=== PATIENT | female | born 1950 | race Caucasian/White ===

== ENCOUNTER 2018-04-05 18:52 | Emergency (ER) | payer MEDICARE, BC ==
[2018-04-05 19:20] VITALS: BP 135/73
--- NOTE | 2018-04-05 19:41 | RAD ---
INDICATION: Traumatic right wrist fracture COMPARISON: Right wrist same date TECHNIQUE: AP, lateral, and oblique views were obtained. FINDINGS: There is a distal radial fracture described in a separate report. No other acute fractures are seen. There is an old avulsion injury from the ulnar styloid. There is mild soft tissue swelling about the wrist. IMPRESSION: INTRA-ARTICULAR DISTAL RADIAL FRACTURE.
--- NOTE | 2018-04-05 19:43 | RAD ---
INDICATION: Right wrist injury COMPARISON: None TECHNIQUE: AP, lateral, and oblique views were obtained. FINDINGS: There is a mildly impacted intra-articular fracture of the distal radius. No other acute fractures are evident. There is an old ulnar styloid fracture. There is advanced osteoarthritic change about the first carpometacarpal articulation. IMPRESSION: MILDLY IMPACTED INTRA-ARTICULAR FRACTURE DISTAL RADIUS.
--- NOTE | 2018-04-05 20:29 | UC ---
Upper Extremity HPI - HPI Summary HPI Summary: 68 y/o female presents to the urgent care c/o RT wrist and forearm pain w/ swelling s/p falling on a slippery cement about 1630Pm. Pt took 3tabs Of Advil around 1700pm. Pain at rest is 2/10 and w/ movement is 8/10. Pt states denies numbness and tingling sensation over her Rt arm or hand. She can move all her finger w/o any difficulty. Pt denies fever, SOB, chest pain, abdominal pain, N/v /D. Pt states Hx opf Spinal narrowing and has an appt w/ orthopedic Dr at [facility] next for a cortisone injection. - History of Current Complaint Chief Complaint: UCUpperExtremity Stated Complaint: FELL RIGHT WRIST INJURY Time Seen by Provider: 04/05/18 19:33 Hx Obtained From: Patient ?: No Onset/Duration: Sudden Onset, Lasting Hours - 3 hrs ago, Still Present Severity Initially: Moderate Severity Currently: Moderate Pain Intensity: 8 - movement Pain Scale Used: 0-10 Numeric Location Of Pain: Is Discrete @ - RT wrist and Rt forearm w/ swelling Character: Sharp, Dull Aggravating Factor(s): Movement, Lifting, Flexion, Extension, Internal/External Rotation Alleviating Factor(s): Ice, OTC Meds Associated Signs And Symptoms: Positive: Swelling, Bruising. Negative: Numbness /Tingling - Risk Factors Non-Orthopedic Risk Factor: Negative DVT Risk Factors: Negative Septic Arthritis Risk Factor: Negative - Allergies/Home Medications Allergies/Adverse Reactions: Allergies Allergy/AdvReac Type Severity Reaction Status Date / Time amoxicillin Allergy Rash Verified 04/05/18 19:22 Sulfa (Sulfonamide Allergy Rash Verified 04/05/18 19:22 Antibiotics) venlafaxine Allergy Itching Verified 04/05/18 19:22 egg AdvReac Severe TRIGGERS Verified 04/05/18 19:22 MIGRAINES PMH/Surg Hx/FS Hx/Imm Hx Previously Healthy: Yes Endocrine History: Hypothyroidism Other Endocrine History: Osteoarthritis Other Neurological History: DDD, spinal stenosis - Surgical History Surgical History: Yes Surgery Procedure, Year, and Place: PARTIAL THYROIDECTOMY (Lt THYROID LOBE- BENIGN TUMOR ). D & C - Family History Known Family History: Positive: Hypertension - Social History Occupation: Retired Lives: With Family Alcohol Use: Weekly Substance Use Type: None Smoking Status (MU): Former Smoker Review of Systems Constitutional: Negative Skin: Bruising - mild RT wrist brusing s/p fall Eyes: Negative ENT: Negative Respiratory: Negative Cardiovascular: Negative Gastrointestinal: Negative Genitourinary: Negative Motor: Negative Neurovascular: Negative Musculoskeletal: Decreased ROM - RT wrist, Other: - RT wrist pain and swelling s /p fall Neurological: Negative Psychological: Negative Is Patient Immunocompromised?: No All Other Systems Reviewed And Are Negative: Yes Physical Exam - Summary Physical Exam Summary: Vital Signs Reviewed: Yes General: Well-Appearing, No Pain Distress, Well-Nourished female w/o any apparent distress Eyes: Positive: Conjunctiva Clear - PERRLA, EOMI ENT: Positive: Normal ENT inspection, Hearing grossly normal, Pharynx normal, TMs normal, Uvula midline Neck: Positive: Supple, Nontender, No Lymphadenopathy Respiratory: Positive: Chest non-tender, Lungs clear, Normal breath sounds, No respiratory distress Cardiovascular: Positive: RRR, No Murmur, Pulses Normal, Brisk Capillary Refill Abdomen Description: Positive: Nontender, No Organomegaly, Soft. Negative: CVA Tenderness (R), CVA Tenderness (L) Bowel Sounds: Positive: Present Musculoskeletal: Positive: Strength Intact, Other: Neurological Exam: Normal Musculoskeletal: Positive: Wrist: the R wrist is without obvious asymmetry or deformity when compared to the L wrist. moderate swelling and bruising of medial aspect RT wrist. No overlying erythema or warmth. No bony crepitus. Point tenderness over the RT wrist and distal forearm. Point tenderness over the thenar eminence and ventral side of wrist. No scaphoid fullness or tenderness to direct palpation or axial load. Decreased ROM due to pain. Motor/ sensory function of ulnar, radial, median nerves intact. Ulnar and radial pulses intact. FROM of all fingers. Psychological Exam: Normal Skin Exam: Normal Triage Information Reviewed: Yes Vital Signs: Initial Vital Signs Temp 98.3 F 04/05/18 19:13 Pulse 75 04/05/18 19:13 Resp 16 04/05/18 19:13 BP 135/73 04/05/18 19:13 Pulse Ox 99 04/05/18 19:13 Upper Extremity Course/Dx - Course Course Of Treatment: 68 y/o female presents to the urgent care c/o RT wrist and forearm pain w/ swelling s/p falling on a slippery cement about 1630Pm. Pt took 3tabs Of Advil around 1700pm. Pain at rest is 2/10 and w/ movement is 8/10. Pt states denies numbness and tingling sensation over her Rt arm or hand. She can move all her finger w/o any difficulty. Pt denies fever, SOB, chest pain, abdominal pain, N/v/D. Pt states Hx opf Spinal narrowing and has an appt w/ orthopedic Dr at [facility] next for a cortisone injection.Hx obtained.RT wrist X-ray ordered. Impression: mildly impacted intrarticular fracture of the distal radius.Pt's symptoms discussed w/ Dr Galeana and he recommended a sugar thong splint. Pt's RT wrist immobilized sugar thong. Pt tolerated well procedure and There was no neurovascular compromise after splint application; the splint was in good alignment and the pt had good sensation and capillary refill at the time of discharge.Pt Advised RICE: Rest, Ice, elevation ,Rx Naproxen PO for pain. Pt advised to f/u w/ Orthopedic Dr Car in 2 days for further evaluation and treatment. Pt understood and agreed w/ plan of care. Pt left the clinic ambulating, hemodynamically stable. - Differential Dx/Diagnosis Differential Diagnosis/HQI/PQRI: Contusion, Fracture (Closed), Strain, Sprain Provider Diagnoses: 1-Mildly impacted infrarticular fracture of the RT distal radius Discharge - Sign-Out/Discharge Documenting (check all that apply): Discharge/Admit/Transfer - D/C home - Discharge Plan Condition: Stable Disposition: HOME Prescriptions: Naproxen TAB* [Naprosyn 250 mg TAB*] 250 mg PO Q8H PRN #30 tab PRN Reason: Pain Patient Education Materials: Wrist Fracture in Adults (ED) Referrals: Adrianne Robbins MD [Primary Care Provider] - 2 Days Deisy Car MD [Medical Doctor] - 2 Days Additional Instructions: 1-Please take medications as directed to alleviate pain and swelling. 2-Please apply ice, keep your forearm immobilized with the splint. 3- Please f/u with Orthopedic Dr Car in 2 days for further evaluation and treatment. - Billing Disposition and Condition Condition: STABLE Disposition: HOME
== END 2018-04-05 20:35 | disposition home or self-care (01) ==
LOC: UCEAST 18:52
DX: S52.571A Other intraarticular fracture of lower end of right radius, initial encounter for closed fracture (principal); W01.0XXA Fall on same level from slipping, tripping and stumbling without subsequent striking against object, initial encounter; Y93.9 Activity, unspecified; Y92.9 Unspecified place or not applicable; E03.9 Hypothyroidism, unspecified; M19.91 Primary osteoarthritis, unspecified site; Z88.0 Allergy status to penicillin; Z88.2 Allergy status to sulfonamides; Z88.8 Allergy status to other drugs, medicaments and biological substances; Z87.891 Personal history of nicotine dependence
CPT/HCPCS: 99213; G0463

== ENCOUNTER 2018-11-24 08:34 | Day surgery (SDC) | payer MEDICARE, BC ==
--- NOTE | 2018-11-19 13:26 | HP ---
AMENDED REPORT NOW INCLUDES DESIGNATED COSIGNER PREOPERATIVE HISTORY AND PHYSICAL: DATE OF ADMISSION/SURGERY: 11/27/18 DATE OF OFFICE VISIT/ENCOUNTER: 11/18/18 ATTENDING SURGEON: Mary Kate Holman MD * (DICTATED BY NEIDA CURTIS) PROCEDURE: Right thumb carpometacarpal joint arthroplasty, right wrist carpal tunnel release. CHIEF COMPLAINT: Base of right thumb pain and right hand numbness and tingling. HISTORY OF PRESENT ILLNESS: This is a 68-year-old female. She has had pain at the base of her thumb that has gradually progressed and became worse after she suffered a nondisplaced fracture to distal radius back in March 2018. X-ray showed that she has significant degenerative changes at the right thumb carpometacarpal joint. She is also complaining of numbness and tingling in her right hand in the median nerve distribution that has been present for quite some time and has become quite persistent. She is interested in undergoing surgical intervention for both of these problems and has consented to proceed with a right thumb CMC joint arthroplasty and right wrist carpal tunnel release. PAST MEDICAL HISTORY: 1. Hypothyroidism. 2. History of skin cancer - carcinoma. 3. History of cardiac murmur. PAST SURGICAL HISTORY: 1. Left total hip arthroplasty in 2017. 2. Left lobe thyroidectomy in 1994. 3. Skin cancer excisions. CURRENT MEDICATIONS: 1. Advil p.r.n. 2. Aleve p.r.n. 3. AR-Encap. 4. Astragalus root. 5. Baxyl. 6. Biotin. 7. Bone Builder with Magnesium. 8. CoQ10 Maximum. 9. EPA-DHA 500 EC. 10. Renetta's Leg Cramps. 11. Levothyroxine sodium 88 mcg daily. 12. Liothyronine sodium 5 mcg daily. 13. Magnesium CitraMate. 14. Olopatadine HCL 0.2% 1 drop both eyes daily. 15. PhytoGen. 16. PhytoMulti. 17. Restasis MultiDose 0.5%. 18. Synaptin. 19. Vitamin C. ALLERGIES: AMOXICILLIN and SULFA ANTIBIOTICS, both cause hives. FAMILY MEDICAL HISTORY: Cancer, heart disease, hypertension. SOCIAL HISTORY: The patient is a retired teacher. She is a former smoker, she quit in 2009. Prior to that, she smoked less than a pack per day, on and off for several years. She denies recreational drug use. She drinks alcohol on occasion. REVIEW OF SYSTEMS: Negative for general, cephalic, cardiovascular, respiratory , GI, and . Musculoskeletal: Positive for current complaints along with chronic low back pain. Integumentary, endocrine, neurologic, and hematologic are all negative. Infectious Disease: Negative for history of MRSA, hepatitis C, HIV. PHYSICAL EXAMINATION GENERAL: Well-developed, well-nourished 68-year-old female, in no acute distress. VITAL SIGNS: Height 5 feet 4 inches, weight 199 pounds. Pulse rate 80, blood pressure 132/80. HEENT: Normocephalic, atraumatic. Pupils are equal, round, and reactive to light and accommodation. Extraocular movements are intact. Throat is clear. NECK: Supple. No palpable lymph nodes. PULMONARY: Lungs are clear to auscultation bilaterally. No wheezes, rales, or rhonchi. CARDIOVASCULAR: Regular rate and rhythm. S1, S2. Mild murmur detected on auscultation. No rubs or gallops. No edema. ABDOMEN: Positive bowel sounds. Soft, nontender. NEUROLOGICAL: Alert and oriented x3. Cranial nerves II through XII are intact. Sensation is intact to light touch. MUSCULOSKELETAL: On exam of her right hand, she has significant degenerative changes evident at the thumb CMC joint. She has MP hyperextension and loss of range of motion in opposition. She also has positive median nerve compression test. There is no thenar wasting, but there is weakness with thumb abduction. IMAGING STUDIES: X-rays of the right thumb show severe degenerative changes at the CMC joint. IMPRESSION: Right thumb carpometacarpal arthritis and right carpal tunnel syndrome. PLAN: The patient is scheduled to undergo a right thumb carpometacarpal arthroplasty and a right wrist carpal tunnel release with Dr. Holman on . She will return to the office 10 days postop for followup and suture removal. A prescription for Dellroy was e-scribed to the patient's pharmacy for postoperative pain management. NEIDA CURTIS [id number]/[facility] #: [id number] KD
[~2018-11-24 08:34] MED LIST: Buffered Lidocaine 1% SYRIN* 1 ML/SYRINGE INTRADERM ONE; Lactated Ringers 1000 ML Bag* 1,000 ML IV SCH
[2018-11-24] MEDS ORDERED: Midazolam* 1 MG/ML 2 ML VIAL (2 MG) ONE (10:12)
[2018-11-24] MEDS ORDERED: fentaNYL* 50 MCG/ML 2 ML VIAL (100 MCG VIAL) ONE (10:12)
[2018-11-24] MEDS ORDERED: Clindamycin 900 MG/D5W BAG(*) 900 MG/50 ML BAG IVPB ONE (10:15)
[2018-11-24] MEDS ORDERED: Lidocaine 1% INJ* 10 MG/ML 30 ML SDV ONE (10:30)
[2018-11-24] MEDS ORDERED: Ondansetron INJ* 2 MG/ML VIAL ONE (10:48)
[2018-11-24] MEDS ORDERED: Dexamethasone IV* 4 MG/ML 1 ML (4 MG) ONE (10:48)
[2018-11-24] MEDS ORDERED: Propofol* 10 MG/ML 20 ML BTL ONE (10:48)
[2018-11-24] MEDS ORDERED: Lidocaine 2% PF * 5 ML VIAL ONE (10:48)
[2018-11-24] MEDS ORDERED: Acetaminophen TAB* 325 MG PO PRN (11:04)
[2018-11-24] MEDS ORDERED: HYDROmorphone INJ1* 1 MG/ML SYRINGE IV PRN (11:04)
[2018-11-24] MEDS ORDERED: oxyCODONE/Acetamin 5/325 MG* TAB PO PRN (11:04)
[2018-11-24] MEDS ORDERED: Naloxone* 0.4 MG/ML 1 ML VIAL IV PRN (11:04)
[2018-11-24] MEDS ORDERED: Ketorolac INJ* 30 MG/ML 1 ML VIAL IV PRN (11:04)
[2018-11-24] MEDS ORDERED: Bupivacaine 0.5% PF 10 ML VIAL INJ ONE ×2 (11:08→11:09)
[2018-11-24 12:53] VITALS: BP 136/52
--- NOTE | 2018-11-24 21:12 | OP ---
DATE OF OPERATION: 11/24/18 [facility] DATE OF : 50 SURGEON: Dr. Holman. DIRECTOR HEMATOLOGY: NEIDA Julian ANESTHESIA: General. PRE-OP DIAGNOSES: Right thumb carpometacarpal arthritis and right carpal tunnel syndrome. POST-OP DIAGNOSES: Right thumb carpometacarpal arthritis and right carpal tunnel syndrome. OPERATIVE PROCEDURE: Right carpal tunnel release and thumb carpometacarpal arthroplasty. ESTIMATED BLOOD LOSS: Zero. TOURNIQUET TIME: About 45 minutes. INDICATIONS FOR PROCEDURE: Hilaria is a 68-year-old female with numbness and tingling in the median nerve distribution of her right hand as well as pain at the base of her right thumb. She has failed conservative treatment and presents for right carpal tunnel release and carpometacarpal arthroplasty of the thumb. DESCRIPTION OF PROCEDURE: The patient was brought to the operating room and was given a general anesthetic and placed in the supine position on the operating table with a tourniquet around her right upper arm. Skin of her right upper extremity was prepped and draped in the usual sterile fashion. The upper extremity was exsanguinated and the tourniquet elevated to 250 mmHg. A longitudinal incision was made in the palm in line with the ring finger. We dissected through the subcutaneous tissue down to the transverse carpal ligament. The ligament was divided sharply with a knife and then more proximally with the scissors. The nerve was dissected free from the surrounding tissue and there was an area of moderate compression at the mid portion of the ligament. The wound was irrigated and the skin edges were reapproximated with 4-0 nylon suture. Next, an S-shaped incision was made centered over the thumb CMC joint on the dorsal radial aspect, dissected bluntly through the subcutaneous tissue. Branches of the radial sensory nerve were located and then retracted by the assistant nurse manager, Renetta Sunshine. The EPL tendon were retracted and then the CMC joint capsule was incised with a distally based U-shaped flap. The radial artery was carefully dissected out and retracted by the assistant nurse manager, Renetta Sunshine, whose assistance was essential for safe completion of the case. The capsule was subperiosteally, dissected off of the trapezium and then the trapezium was removed in its entirety. The wound was copiously irrigated with saline. The CMC joint capsule was secured to the FCR tendon with 4-0 nylon suture. This gave very nice abduction position to the metacarpal. The remainder of the capsule was closed with 4-0 nylon suture and then the skin edges were reapproximated with 4- 0 nylon suture. The wound was dressed with Xeroform, 4x4, Webril, and a thumb spica brace. The patient tolerated the procedure well and was brought to the recovery room in good condition. [id number]/[facility] #: [id number] KD
== END 2018-11-24 12:48 | disposition home or self-care (01) ==
LOC: OREAST 08:34
PROVIDERS: ATTEND Orthopaedic Surgery
DX: M18.11 Unilateral primary osteoarthritis of first carpometacarpal joint, right hand (principal); G56.01 Carpal tunnel syndrome, right upper limb; E03.9 Hypothyroidism, unspecified; Z85.828 Personal history of other malignant neoplasm of skin; Z87.891 Personal history of nicotine dependence; M19.90 Unspecified osteoarthritis, unspecified site
CPT/HCPCS: 88304; 88311; J1100; J2250; J2405; J2704; J3010

== ENCOUNTER 2022-11-19 18:15 | Observation (INO) ==
[2022-11-19 18:51] LABS: ABS Basophils 0.1 10^3/ul (0-0.2); ABS Eosinophils 0.1 10^3/ul (0-0.6); ABS Lymphocytes 2.2 10^3/ul (1.0-4.8); ABS Monocytes 0.8 10^3/ul (0-0.8); ABS Neutrophils 6.8 10^3/ul (1.5-7.7); Eosinophil % 1.5 %; Hematocrit 41 % (35-47); Hemoglobin 13.6 g/dL (12.0-16.0); Lymphocyte % 22.3 %; Mean Corpuscular HGB Conc 33 g/dL (31-36); Mean Corpuscular Hemoglobin 31 pg (27-31); Mean Corpuscular Volume 94 fL (80-97); Mean Platelet Volume 8.2 fL (7.4-10.4); Nucleated Red Blood Cells % 0.1; Platelet Count 318 10^3/uL (150-450); Red Blood Count 4.36 10^6 /uL (3.70-4.87); Red Cell Distribution Width 14 % (10-15)
[2022-11-19 19:22] LABS: ALT 26 U/L (7-52); AST 22 U/L (13-39); Albumin 4.1 g/dL (3.2-5.2); Albumin/Globulin Ratio 1.8 (1-3); Alkaline Phosphatase 69 U/L (35-149); Anion Gap 5 mmol/L (2-11); Blood Urea Nitrogen 22 mg/dL (6-24); C Reactive Protein < 1.00 mg/L (<8.01); CO2 Carbon Dioxide 31 mmol/L (22-32); Calcium 9.7 mg/dL (8.6-10.3); Chloride 101 mmol/L (101-111); Globulin 2.3 g/dL (2-4); Glucose 115 mg/dL (70-100); Lipase 40 U/L (11.0-82.0); Potassium 3.9 mmol/L (3.5-5.0); Sodium 137 mmol/L (135-145); Total Protein 6.4 g/dL (6.4-8.9); eGFR CKD-EPI 42.5 (>60)
[2022-11-19] MEDS ORDERED: Lactated Ringers 1000 ml BAG 1,000 ML IV ONE (19:34)
[2022-11-19] MEDS ORDERED: Iodixanol (CONTRAST) 320 MG/ML 100 ML SDV IV ONE (19:57)
[2022-11-19 22:10] LABS: Urine Appearance Clear; Urine Bilirubin Negative (Negative); Urine Blood 1+ (Negative); Urine Color Yellow; Urine Glucose Negative (Negative); Urine Ketones Negative (Negative); Urine Nitrite Negative (Negative); Urine Protein Negative (Negative); Urine Specific Gravity 1.023 (1.002-1.030); Urine Urobilinogen Negative (Negative)
[2022-11-19 22:16] LABS: Urine Bacteria Absent (Absent); Urine Red Blood Cell Trace(0-2/hpf) (Absent); Urine Squamous Epithelial Cell Present (Absent); Urine Transitional Epithelial Present (Absent); Urine White Blood Cell Absent (Absent)
[2022-11-20] MEDS ORDERED: Lactated Ringers 1000 ml BAG 1,000 ML IV SCH (03:00)
[2022-11-20 07:39] LABS: ABS Basophils 0.1 10^3/ul (0-0.2); ABS Eosinophils 0.2 10^3/ul (0-0.6); ABS Lymphocytes 2.1 10^3/ul (1.0-4.8); ABS Monocytes 0.6 10^3/ul (0-0.8); ABS Neutrophils 3.9 10^3/ul (1.5-7.7); Eosinophil % 2.4 %; Hematocrit 38 % (35-47); Hemoglobin 12.7 g/dL (12.0-16.0); Lymphocyte % 30.4 %; Mean Corpuscular HGB Conc 33 g/dL (31-36); Mean Corpuscular Hemoglobin 31 pg (27-31); Mean Corpuscular Volume 92 fL (80-97); Mean Platelet Volume 7.8 fL (7.4-10.4); Platelet Count 285 10^3/uL (150-450); Red Blood Count 4.15 10^6 /uL (3.70-4.87); Red Cell Distribution Width 14 % (10-15); White Blood Count 6.8 10^3/uL (3.5-10.8)
[2022-11-20 08:18] LABS: Calcium 9.3 mg/dL (8.6-10.3); eGFR CKD-EPI 47.2 (>60)
[2022-11-20] MEDS ORDERED: Senna TAB 8.6 mg TAB PO ONE (13:53)
[2022-11-20] MEDS ORDERED: Magnesium Hydroxide LIQ 30 ML UDC PO ONE (13:53)
[2022-11-20] MEDS ORDERED: Enoxaparin 40 MG/0.4 ML SYR SUBCUT SCH (14:00)
[2022-11-21 07:08] LABS: ABS Eosinophils 0.2 10^3/ul (0-0.6); ABS Lymphocytes 1.8 10^3/ul (1.0-4.8); ABS Monocytes 0.5 10^3/ul (0-0.8); ABS Neutrophils 2.7 10^3/ul (1.5-7.7); Hematocrit 38 % (35-47); Hemoglobin 12.4 g/dL (12.0-16.0); Lymphocyte % 34.5 %; Mean Corpuscular HGB Conc 33 g/dL (31-36); Mean Corpuscular Hemoglobin 31 pg (27-31); Mean Corpuscular Volume 94 fL (80-97); Mean Platelet Volume 8.5 fL (7.4-10.4); Platelet Count 276 10^3/uL (150-450); Red Blood Count 4.02 10^6 /uL (3.70-4.87); Red Cell Distribution Width 14 % (10-15); White Blood Count 5.2 10^3/uL (3.5-10.8)
[2022-11-21 07:35] LABS: Calcium 9.1 mg/dL (8.6-10.3); Magnesium 2.1 mg/dL (1.9-2.7); Potassium 4.4 mmol/L (3.5-5.0); eGFR CKD-EPI 45.4 (>60)
[2022-11-21 11:54] VITALS: BP 128/84
== END 2022-11-21 14:00 | disposition home or self-care (01) ==
LOC: ED 18:15 → EDHOLD 11-20 01:40 → INTOOBSV 11-20 01:40 → SUATTDRO 11-20 01:40 → EDHOLD 11-20 03:44 → MED 11-20 04:17
PROVIDERS: ADMIT Internal Medicine; ATTEND Internal Medicine